=== PATIENT | female | born 1985 | race Caucasian/White ===

== ENCOUNTER 2023-05-10 03:11 | Emergency (ER) | payer OTHER, SELFPAY ==
[2023-05-10] VITALS (7 sets, daily range): BP systolic 94–129; BP diastolic 56–64; PULSE 56–80; RESP 15–21; TEMP 36.6; O2SAT 95–100; BMI 35.2
--- NOTE | 2023-05-10 03:23 | ED.GENADULT ---
HPI - General Adult General Chief complaint: Chest Pain Stated complaint: chest pain dizzy left arm pain 1 hour Time Seen by Provider: 05/10/23 03:18 History of Present Illness HPI narrative: 37-year-old woman with a BMI of 35, hypertension, hyperlipidemia, diabetes, polycystic ovarian disease he currently vapes presents with acute onset chest tightness starting at 2:00 a.m. this morning then radiating into her left arm and up into the left jaw. She states that she has a chronic cough that she is always assumed was secondary to her vaping. She reports no fevers, chills, palpitations, exertional dyspnea, orthopnea. She does not report any new or different activities or change to medications Related Data Allergies Allergy/AdvReac Type Severity Reaction Status Date / Time latex Allergy Unknown Verified 05/10/23 04:03 nickel Allergy Unknown Verified 05/10/23 04:03 Review of Systems Review of Systems Narrative: Pertinent positive and negative findings as per HPI Patient History Medical History (Updated 05/10/23 @ 04:54 by Yue Brunner MD) Diabetes type 2, controlled Polycystic ovarian syndrome Hyperlipidemia Hypertension Exam Narrative Exam Narrative: General: Healthy appearing, in no acute distress. Able to give a complete and coherent history. Well-nourished well-developed HEENT: Moist mucous membranes, normal sclera with reactive pupils, Neck: No JVD, supple. Reproducible arm and jaw pain with compression and neck rotation Respiratory: Lungs are clear to auscultation, no wheezing no rales no rhonchi. Full and symmetrical air movement Chest: Significant tenderness along all costochondral margins reproducing her chest pain Cardiac: Regular rate and rhythm no murmurs no bruits Abdomen: Soft, nontender, good bowel tones, no flank pain Skin: Warm and dry, no rashes Neurologic: Grossly neurologically intact with no obvious asymmetries or abnormalities Extremities: No trauma, well perfused Psych: Cooperative, appropriate insight and affect Medical Decision Making [facility] Narrative Medical decision making narrative: CC: Acute chest pain Complicating co-morbidities: Hypertension, hyperlipidemia, type 2 diabetes, PCOS, vaping, self-described sedentary lifestyle Data collected from: patient Medical records reviewed: No records available for review Differential considered: Acute coronary syndrome, radicular neck pain, pneumothorax, costochondritis Exam documented above, pertinent findings include: Exam is notable for significant costochondritis that completely reproduces her pain. Some of the arm and neck pain is reproducible with manipulation of her cervical spine. Cardiac and pulmonary exams are unremarkable Lab Test results independently reviewed as above. Pertinent findings: CBC shows mild leukocytosis at 14 remainder of CBC is unremarkable Chemistries are reassuring Troponin is undetectable Lipase is within normal limits Independently reviewed EKG: EKG shows sinus rhythm at a rate of 64. STT wave nonspecific changes without acute ischemia Imaging studies independently reviewed: Chest x-ray shows no significant cardiopulmonary abnormalities Treatments: IV Toradol Discussion: 37-year-old woman presents with acute onset of chest pain waking her from sleep with multiple risk factors for cardiac disease but no family history for such. Workup is unremarkable including troponin and EKG. Chest x-ray is reassuring. She has absolutely reproducible chest pain with minimal palpation along sternal borders consistent costochondritis. After IV Toradol the pain is markedly improved but not completely relieved. At this point I do not think that this represents acute coronary syndrome radicular neck pain no evidence of pleuritic pain pneumothorax or cardiomyopathy. I suspect that this is related to costochondritis and perhaps a small amount of anxiety to compound her overall symptoms. All of these findings reviewed with patient. She is relieved of the findings understands need for ibuprofen and rest. Questions are answered she is safe for discharge Discharge Plan Departure Patient Disposition: Home Clinical Impression: Costalchondritis Instructions: DI for Costochondritis Activity Restrictions/Additional Instructions: Thank you for coming in today Your workup was quite reassuring. Your initial troponin EKG were reassuring. Fact that your chest pain was reproducible with palpation along the breastbone borders is a very strong argument for costochondritis and a very strong argument against heart attack. You were given a dose of Toradol, an anti-inflammatory nonsteroidal. For costochondritis using 400 mg of ibuprofen (2 [id number] pills) and 1 Tylenol every 6 hours can be very helpful in controlling pain. If you find that you are getting worse or develop any new symptoms, please feel free to return to the emergency department for further evaluation. Stand Alone Forms: Patient Portal/API
--- NOTE | 2023-05-10 03:27 | DI.RAD.S_ITS ---
PROCEDURE: XR CHEST 1V INDICATIONS: chest pain TECHNIQUE: One view of the chest was acquired. COMPARISON: None. FINDINGS: Surgical changes and devices: None. Lungs and pleura: An incomplete inspiratory result is noted, causing a crowded appearance to the lung markings. Minimal infrahilar opacity can be seen the right lung base medially. No pneumothorax or significant pleural effusions are seen. Mediastinum: Mediastinal contours appear normal. Heart size is normal. Bones and chest wall: No suspicious bony lesions. Overlying soft tissues appear unremarkable. IMPRESSION: Minimal opacity seen involving the right lung base medially. In this patient with low lung volumes, this is most likely related to artifact or atelectasis. However, differential diagnosis includes mild infiltrate. If clinically appropriate, a short-term followup chest series (with PA and lateral views) performed in deep inspiration is suggested for further evaluation. Note: No significant discrepancy from the preliminary report. Dictated by: Ravindra Kuo M.D. on 05/10/2023 at 8:26 Approved by: Ravindra Kuo M.D. on 05/10/2023 at 8:27
[2023-05-10 03:43] LABS: Add Manual Diff / Slide Review NO; Basophils Absolute Auto 100 /uL (0-100); Basophils Percent Auto 0.7 % (0-2); Eosinophils Absolute Auto 100 /uL (0-450); Hematocrit 39.7 % (36-46); Hemoglobin 13.5 g/dL (12.0-16.0); INR 0.8 (0.9-1.3); Lymphocytes Absolute Auto 3700 /uL (1100-4500); Lymphocytes Percent Auto 26.5 % (25-40); Mean Corpuscular HGB Conc 33.9 % (30-36); Mean Corpuscular Hemoglobin 29.6 PG (26-34); Mean Corpuscular Volume 87.2 fL (80-100); Monocytes Absolute Auto 700 /uL (0-900); Monocytes Percent Auto 5.1 % (3-14); Neutrophils Absolute Auto 9400 /uL (1500-7000); Neutrophils Percent Auto 66.7 % (50-75); Platelet Count 319 X10^3/uL (150-400); Prothrombin Time 9.4 SECONDS (9.4-12.5); Red Blood Cell Count 4.55 X10^6/uL (4.0-5.2); Red Cell Distribution Width 12.8 % (11.6-14.8)
[2023-05-10 03:45] LABS: PTT Partial Thromboplastin Tim 28 SECONDS (25.1-36.5)
[2023-05-10 03:48] LABS: Alanine Aminotransferase 18 IU/L (<35); Albumin 4.3 g/dL (3.5-5.0); Albumin Globulin Ratio 1.3 (1.0-2.8); Alkaline Phosphatase 65 U/L (38-126); Aspartate Aminotransferase 19 IU/L (14-36); BUN Creatinine Ratio 12.1 (6-22); Bilirubin Total 0.6 mg/dL (0.2-1.3); Blood Urea Nitrogen 8 mg/dL (7-17); Calcium 9.3 mg/dL (8.4-10.2); Carbon Dioxide 24 mmol/L (22-32); Chloride 101 mmol/L (98-107); Creatine Kinase 65 U/L (30-135); Estimated Glomerular Filt Rate > 60 mL/min (>60); Globulin 3.3 g/dL (1.7-4.1); Glucose 93 mg/dL (70-100); HEMOLYSIS < 15 (0-50); Lipase 249 U/L (23-300); Potassium 3.6 mmol/L (3.4-5.1); Sodium 137 mmol/L (137-145); Total Protein 7.6 g/dL (6.3-8.2)
[2023-05-10] MEDS: KETOROLAC 30 MG/ML VIAL 15 MG IV (03:52)
[2023-05-10 03:54] LABS: D Dimer 911 ng/ml (<500)
[2023-05-10 03:59] LABS: Troponin I < 0.012 ng/mL (0.01-0.034)
== END 2023-05-10 05:00 | disposition home or self-care (01) ==
PROVIDERS: Emergency Provider Emergency Medicine
DX: M94.0 Chondrocostal junction syndrome [Tietze] (principal)
CPT/HCPCS: 36415; 71045; 80053; 82550; 83690; 83735; 84484; 85025; 85379; 85610; 85730; 93005; 93010; 96374; 99284; J1885

== ENCOUNTER 2023-11-15 04:28 | Emergency (ER) | payer OTHER, SELFPAY ==
[2023-11-15] VITALS (7 sets, daily range): BP systolic 98–131; BP diastolic 57–78; PULSE 76–86; RESP 14–20; TEMP 36.8; O2SAT 95–98; BMI 30.9
[2023-11-15 04:52] LABS: Add Manual Diff / Slide Review NO; Basophils Absolute Auto 100 /uL (0-100); Basophils Percent Auto 0.6 % (0-2); Eosinophils Absolute Auto 200 /uL (0-450); Eosinophils Percent Auto 1.3 % (2-4); Hematocrit 42.7 % (36-46); Hemoglobin 14.2 g/dL (12.0-16.0); Lymphocytes Absolute Auto 3000 /uL (1100-4500); Lymphocytes Percent Auto 19.6 % (25-40); Mean Corpuscular HGB Conc 33.3 % (30-36); Mean Corpuscular Hemoglobin 29.4 PG (26-34); Mean Corpuscular Volume 88.4 fL (80-100); Monocytes Absolute Auto 900 /uL (0-900); Monocytes Percent Auto 5.8 % (3-14); Neutrophils Absolute Auto 11100 /uL (1500-7000); Neutrophils Percent Auto 72.7 % (50-75); Platelet Count 326 X10^3/uL (150-400); Red Blood Cell Count 4.83 X10^6/uL (4.0-5.2); Red Cell Distribution Width 13.4 % (11.6-14.8); White Blood Cell Count 15.2 X10^3/uL (4.5-11.0)
--- NOTE | 2023-11-15 04:53 | DI.US.S_ITS ---
PROCEDURE: US ABDOMEN LIMITED INDICATIONS: epigastric pain TECHNIQUE: Real-time scanning was performed of the abdominal and retroperitoneal organs, with image documentation. COMPARISON: None. FINDINGS: Liver: Liver is normal in size and homogeneous in echotexture. Gallbladder: No gallstones identified. Normal gallbladder wall thickness. No pericholecystic fluid. Negative sonographic Trimble sign. Biliary ducts: Intrahepatic bile ducts are non-dilated. Extrahepatic bile duct caliber measures 3 mm. Normal is 6-7 mm or less in diameter, or 10 mm or less post-cholecystectomy. Pancreas: Visualized portions of the pancreas are sonographically normal. IMPRESSION: No cholelithiasis or sonographic evidence of acute cholecystitis. Findings are concordant with preliminary interpretation provided by [facility]. Approved by: Yasmin Jones M.D.,Ph.D. on 11/15/2023 at 9:51
--- NOTE | 2023-11-15 04:57 | ED_ITS ---
HPI - Abdominal Pain General Chief Complaint: Abdominal Pain Stated Complaint: ABDOMINAL PAIN Time Seen by Provider: 11/15/23 04:45 Source: patient Mode of arrival: Ambulatory Limitations: no limitations History of Present Illness HPI narrative: 38-year-old diabetes type 2, PCOS who presents with complaint epigastric pain radiates towards her back. Fairly sudden onset earlier this morning which has been persistent waxing and waning in terms of intensity. Patient states has not resolved. States movement seems to make it a little bit worse, being still seems to make it little bit better. No fevers. She has had nausea she states she has not vomited. She states she normally alternates between diarrhea and constipation. She denies any dysuria urgency or frequency. She states she has had pain in the same location but slightly different characterization in the past when she would pancreatitis. She states she was hospitalized for several days but does not know why she would pancreatitis. Patient states she is on Jardiance and Ozempic as well as spironolactone for PCOS. Patient denies any major surgeries. States she quit vaping tobacco in the last month. States occasional alcohol but none recently. Has used edibles in the past but none for about 2 or 3 months. Denies any other recreational drugs. Related Data Previous Rx's Medication Instructions Recorded omeprazole 40 mg capsule,delayed 40 mg PO DAILY #60 caps 11/15/23 release Allergies Allergy/AdvReac Type Severity Reaction Status Date / Time latex Allergy Unknown Verified 05/10/23 04:03 nickel Allergy Unknown Verified 05/10/23 04:03 Review of Systems Review of Systems ROS Unobtainable: All systems reviewed & are unremarkable except as noted in HPI and below Patient History Medical History Diabetes type 2, controlled Polycystic ovarian syndrome Hyperlipidemia Hypertension Social History Smoking Status: Current every day smoker Smoking Status: Current every day smoker tobacco type: vaping alcohol intake frequency: holidays/special occasions only Substance Use Type: marijuana Exam Narrative Exam Narrative: GENERAL: Alert and oriented x three, female in [id number] distress. HEENT: Head normocephalic, atraumatic, EOMI, pupils reactive, face symmetric, moist mucous membranes NECK: Supple, full range of motion CARDIOVASCULAR: Regular rate and rhythm without murmurs, rubs or gallops. RESPIRATORY: Breath sounds equal bilaterally, no wheezes rales or rhonchi. ABDOMEN: Soft, positive for epigastric and right upper quadrant tenderness. Normoactive bowel sounds all 4 quadrants. No guarding or rebound, rigidity, no mass, no pulsatile mass or bruit. : No CVA tenderness EXTREMITIES: Normal range of motion, no clubbing or edema. Neurovascularly intact NEUROLOGICAL: Cranial nerves II through XII grossly intact. Moving all extremities SKIN: Warm, dry, no petechiae, no rashes or lesions. Initial Vital Signs Initial Vital Signs: Vital Signs Temperature 98.2 F 11/15/23 04:39 Pulse Rate 85 11/15/23 04:39 Respiratory Rate 14 11/15/23 04:39 Blood Pressure 131/78 11/15/23 04:39 Pulse Oximetry 98 11/15/23 04:39 Oxygen Delivery Method Room Air 11/15/23 04:39 Course Orders Ordered: ED Orders 11/15/23 04:40 Complete Blood Count AUTO DIFF Stat Comprehensive Metabolic Panel Stat Lipase Stat 11/15/23 04:53 US abdomen limited Stat Ondansetron HCl (Ondansetron 4 Mg/2 Ml Inj) 4 mg IV NOW PRN PRN Reason: Nausea And Vomiting Last Admin: 11/15/23 05:03 Dose: 4 mg Documented By: Discontinued Medications Al Hydrox/Mg Hydrox/Simethicone 20 ml/ Lidocaine HCl 15 ml 0 ml PO NOW ONE Stop: 11/15/23 06:17 Last Admin: 11/15/23 06:24 Dose: 35 ml Documented By: KATHLEEN Sodium Chloride (Normal Saline 0.9%) 1,000 mls @ 1,000 mls/hr IV BOLUS ONE Stop: 11/15/23 05:55 Last Infusion: 11/15/23 06:16 Dose: Infused Documented By: Admin: 11/15/23 05:04 Dose: 1,000 mls/hr Documented By: Ketorolac Tromethamine (Ketorolac 30 Mg/Ml Vial) 15 mg IV NOW ONE Stop: 11/15/23 04:57 Last Admin: 11/15/23 05:03 Dose: 15 mg Documented By: Ondansetron HCl (Ondansetron 4 Mg Odt) 4 mg PO NOW PRN PRN Reason: Nausea And Vomiting Pantoprazole Sodium (Pantoprazole 40 Mg Vial) 40 mg IV NOW ONE Stop: 11/15/23 04:57 Last Admin: 11/15/23 05:03 Dose: 40 mg Documented By: AB Vital Signs Vital signs: Vital Signs - 8 hr 11/15/23 04:39 11/15/23 04:44 11/15/23 05:00 Temperature 98.2 F Pulse Rate 85 83 78 Respiratory Rate 14 Blood Pressure 131/78 Pulse Oximetry 98 95 96 Oxygen Delivery Method Room Air 11/15/23 05:00 11/15/23 05:30 11/15/23 05:30 Temperature Pulse Rate 86 Respiratory Rate Blood Pressure 105/61 114/57 L Pulse Oximetry 97 Oxygen Delivery Method 11/15/23 06:00 11/15/23 06:30 Temperature Pulse Rate 76 77 Respiratory Rate Blood Pressure Pulse Oximetry 95 95 Oxygen Delivery Method MDM - Abdominal Pain Lab Data 11/15/23 04:40 11/15/23 04:40 Labs: Lab Results 11/15/23 Range/Units 04:40 WBC 15.2 H (4.5-11.0) X10^3/uL RBC 4.83 (4.0-5.2) X10^6/uL Hgb 14.2 (12.0-16.0) g/dL Hct 42.7 (36-46) % MCV 88.4 (80-100) fL MCH 29.4 (26-34) PG MCHC 33.3 (30-36) % RDW 13.4 (11.6-14.8) % Plt Count 326 (150-400) X10^3/uL Neut % (Auto) 72.7 (50-75) % Lymph % (Auto) 19.6 L (25-40) % [place] % (Auto) 5.8 (3-14) % Eos % (Auto) 1.3 L (2-4) % Baso % (Auto) 0.6 (0-2) % Neut # (Auto) 04125 H (0528-7040) /uL Lymph # (Auto) 3000 (0542-3786) /uL [place] # (Auto) 900 (0-900) /uL Eos # (Auto) 200 (0-450) /uL Baso # (Auto) 100 (0-100) /uL Sodium 137 (137-145) mmol/L Potassium 4.3 (3.4-5.1) mmol/L Chloride 108 H (98-107) mmol/L Carbon Dioxide 24 (22-32) mmol/L BUN 16 (7-17) mg/dL Creatinine 0.81 (0.52-1.04) mg/dL Estimated GFR > 60 (>60) mL/min BUN/Creatinine Ratio 19.8 (6-22) Glucose 90 (70-100) mg/dL Calcium 9.4 (8.4-10.2) mg/dL Total Bilirubin 0.4 (0.2-1.3) mg/dL AST 16 (14-36) IU/L ALT 13 (<35) IU/L Alkaline Phosphatase 62 (38-126) U/L Total Protein 8.0 (6.3-8.2) g/dL Albumin 4.4 (3.5-5.0) g/dL Globulin 3.6 (1.7-4.1) g/dL Albumin/Globulin Ratio 1.2 (1.0-2.8) Lipase 175 (23-300) U/L Point of care testing: Point of Care Testing Test Results Negative Urine Dip Bedside Urine Glucose 1000 mg/dl Bedside Urine Bilirubin - Negative Bedside Urine Ketone - Negative Urine Specific [place] 1.015 Bedside Urine Occult Blood - Negative Bedside Urine pH 6 Bedside Urine Protein - Negative Bedside Urine Urobilinogen - Negative Bedside Urine Nitrite - Negative Bedside Urine Leukocytes - Negative Esterase Imaging Data US - abdomen: Radiologist's Impression: Gallbladder is normal sonographic appearance without gallbladder wall thickening, cholelithiasis, pericholecystic fluid or sonographic Trimble's sign. Common bile duct is normal diameter measures 3 mm, pancreas appears normal where seen tail is obscured by bowel gas, no free fluid or adenopathy seen. MDM Narrative Medical decision making narrative: 38-year-old female with history of diabetes type 2, PCOS and prior episode of pancreatitis. Patient states epigastric pain fairly sudden onset reproducible with palpation and also in the right upper quadrant. Initial labs show white count of 15 normal hemoglobin and platelets, electrolytes, LFTs and lipase are negative except for a chloride of 108. Right upper quadrant Abdominal ultrasound is negative. Urine, shows glucose, no infection, negative. Patient received fluids, Toradol, Protonix and Zofran. On recheck patient has improved but still somewhat uncomfortable. Patient then had GI cocktail and states very helpful. Will start on omeprazole. Discharge Plan Departure Patient Disposition: Home Clinical Impression: Abdominal pain, epigastric Instructions: DI for Epigastric Pain Activity Restrictions/Additional Instructions: Follow up with your physician for recheck. If your symptoms are persistent you may need to follow up for EGD, contacts included below to set up follow up with General surgery. Can take omeprazole 40 mg daily. Prescription sent to [facility]. Please return for fevers, rapidly worsening abdominal back or flank pain, persistent vomiting, lightheadedness or passing out, black or bloody stools or other new or concerning changes. Prescriptions: New omeprazole 40 mg capsule,delayed release(DR/EC) 40 mg PO DAILY Qty: 60 0RF Referrals: Dulce Brown MD [Physician] - Stand Alone Forms: Patient Portal/API
[2023-11-15 04:58] LABS: Alanine Aminotransferase 13 IU/L (<35); Albumin 4.4 g/dL (3.5-5.0); Albumin Globulin Ratio 1.2 (1.0-2.8); Alkaline Phosphatase 62 U/L (38-126); Aspartate Aminotransferase 16 IU/L (14-36); BUN Creatinine Ratio 19.8 (6-22); Bilirubin Total 0.4 mg/dL (0.2-1.3); Blood Urea Nitrogen 16 mg/dL (7-17); Calcium 9.4 mg/dL (8.4-10.2); Carbon Dioxide 24 mmol/L (22-32); Chloride 108 mmol/L (98-107); Estimated Glomerular Filt Rate > 60 mL/min (>60); Globulin 3.6 g/dL (1.7-4.1); Glucose 90 mg/dL (70-100); HEMOLYSIS < 15 (0-50); Lipase 175 U/L (23-300); Potassium 4.3 mmol/L (3.4-5.1); Sodium 137 mmol/L (137-145)
[2023-11-15] MEDS: ONDANSETRON 4 MG/2 ML INJ IV (05:03)
[2023-11-15] MEDS: PANTOPRAZOLE 40 MG VIAL IV (05:03)
[2023-11-15] MEDS: KETOROLAC 30 MG/ML VIAL 15 MG IV (05:03)
[2023-11-15] MEDS: SODIUM CHLORIDE 0.9% 1,000 ML 1000 ML IV (05:04)
[2023-11-15] MEDS: MAG HYDROX/ALUMINUM/SIMETH SUS 20 ML, LIDOCAINE VISCOUS 2% 15 ML PO (06:24)
== END 2023-11-15 07:40 | disposition home or self-care (01) ==
PROVIDERS: Emergency Provider Emergency Medicine
DX: R10.13 Epigastric pain (principal)
CPT/HCPCS: 36415; 76705; 80053; 81003; 81025; 83690; 85025; 96361; 96374; 96375; 99284; C9113; J1885; J2405

== ENCOUNTER 2024-01-01 12:35 | Emergency (ER) | payer OTHER, SELFPAY ==
[2024-01-01 12:44] VITALS: BP 136/89; PULSE 68; RESP 16; TEMP 36.6; O2SAT 99
--- NOTE | 2024-01-01 12:50 | EKG_ITS ---
[address] [address] [address] [address] Test Date: 2024-01-01 Pat Name: Waleska Quiñones Department: Room: Gender: Female Loading Dock Hand: TAISHA : 1985 Requested By: Order Number: [id number] Reading MD: Ibrahima Rodarte MD Measurements Intervals [place]mo Rate: 69 P: 43 CA: 138 QRS: 14 QRSD: 82 T: 38 QT: 416 QTc: 445 Interpretive Statements Normal sinus rhythm Electronically Signed On 01-01-2024 17:22:54 PDT by Ibrahima Rodarte MD
[2024-01-01 13:06] VITALS: PULSE 69; RESP 12; O2SAT 95
--- NOTE | 2024-01-01 13:07 | ED.GENADULT ---
HPI - General Adult General Chief complaint: Dizziness Stated complaint: WIC; Trouble Maintaining Consciousness Time Seen by Provider: 01/01/24 12:39 Source: patient Mode of arrival: Wheelchair History of Present Illness HPI narrative: Patient is a 38-year-old female who is here for evaluation of approximately 2 hours of what she describes as dizziness, nausea without vomiting, not feeling well, lightheadedness. She stated that the symptoms occurred when she was walking back into her office earlier today. She states that the symptoms had a fairly sudden onset. They do seem to come in waves. No chest pain or abdominal pain. Related Data Home Medications Medication Instructions Recorded Confirmed drospirenone 3 mg-ethinyl 1 tab PO DAILY 01/01/24 01/01/24 estradiol 0.03 mg tablet tirzepatide 2.5 mg/0.5 mL 2.5 mg SUBCUT QWEEK 01/01/24 01/01/24 subcutaneous pen injector Previous Rx's Medication Instructions Recorded omeprazole 40 mg capsule,delayed 40 mg PO DAILY #60 caps 11/15/23 release Allergies Allergy/AdvReac Type Severity Reaction Status Date / Time latex Allergy Unknown Verified 01/01/24 12:57 nickel Allergy Unknown Verified 01/01/24 12:57 Review of Systems Review of Systems ROS Unobtainable: All systems reviewed & are unremarkable except as noted in HPI and below Patient History Medical History Diabetes type 2, controlled Polycystic ovarian syndrome Hyperlipidemia Hypertension Social History Smoking Status: Current every day smoker Smoking Status: Current every day smoker tobacco type: vaping alcohol intake frequency: holidays/special occasions only Substance Use Type: marijuana Exam Initial Vital Signs Initial Vital Signs: Vital Signs Temperature 97.9 F 01/01/24 12:44 Pulse Rate 68 01/01/24 12:44 Respiratory Rate 16 01/01/24 12:44 Blood Pressure 136/89 01/01/24 12:44 Pulse Oximetry 99 01/01/24 12:44 Oxygen Delivery Method Room Air 01/01/24 12:44 Const General: cooperative, comfortable and No ill appearing HENMT Head: normal to inspection and normocephalic Resp Effort & Inspection: normal respiratory effort Auscultation: clear to auscultation bilaterally Cardio Rate: regular rate Rhythm: regular rhythm GI Inspection: normal to inspection and non-distended Skin General: no rashes or lesions noted Neuro General: patient alert, patient awake, patient oriented x3 and moves all extremities Extrem General: capillary refill normal Course Orders Ordered: ED Orders 01/01/24 12:46 EKG-12 Lead Stat 01/01/24 13:01 Complete Blood Count AUTO DIFF Stat Comprehensive Metabolic Panel Stat Lipase Stat Test Serum,Qual Stat 01/01/24 13:50 COVID19 -Nasal RAPID Stat Vital Signs Vital signs: Vital Signs - 8 hr 01/01/24 12:44 Temperature 97.9 F Pulse Rate 68 Respiratory Rate 16 Blood Pressure 136/89 Pulse Oximetry 99 Oxygen Delivery Method Room Air Medical Decision Making Lab Data Lab results reviewed: Yes I reviewed the patient's lab results. 01/01/24 13:01 01/01/24 13:01 Labs: Lab Results 01/01/24 01/01/24 Range/Units 13:01 13:50 WBC 10.8 (4.5-11.0) X10^3/uL RBC 4.90 (4.0-5.2) X10^6/uL Hgb 14.7 (12.0-16.0) g/dL Hct 42.9 (36-46) % MCV 87.6 (80-100) fL MCH 30.0 (26-34) PG MCHC 34.2 (30-36) % RDW 12.8 (11.6-14.8) % Plt Count 190 (150-400) X10^3/uL Neut % (Auto) 72.0 (50-75) % Lymph % (Auto) 22.3 L (25-40) % [place] % (Auto) 3.1 (3-14) % Eos % (Auto) 1.9 L (2-4) % Baso % (Auto) 0.7 (0-2) % Neut # (Auto) 7700 H (3198-7040) /uL Lymph # (Auto) 2400 (5759-0641) /uL [place] # (Auto) 300 (0-900) /uL Eos # (Auto) 200 (0-450) /uL Baso # (Auto) 100 (0-100) /uL Sodium 135 L (137-145) mmol/L Potassium 4.5 (3.4-5.1) mmol/L Chloride 106 (98-107) mmol/L Carbon Dioxide 17 L (22-32) mmol/L BUN 16 (7-17) mg/dL Creatinine 0.85 (0.52-1.04) mg/dL Estimated GFR > 60 (>60) mL/min BUN/Creatinine Ratio 18.8 (6-22) Glucose 88 (70-100) mg/dL Calcium 9.2 (8.4-10.2) mg/dL Total Bilirubin 0.6 (0.2-1.3) mg/dL AST 21 (14-36) IU/L ALT 12 (<35) IU/L Alkaline Phosphatase 77 (38-126) U/L Total Protein 7.9 (6.3-8.2) g/dL Albumin 4.4 (3.5-5.0) g/dL Globulin 3.5 (1.7-4.1) g/dL Albumin/Globulin Ratio 1.3 (1.0-2.8) Lipase 120 (23-300) U/L Serum , Qual Negative (Negative) SARS-CoV-2 (PCR) Positive H (Negative) Point of Care Testing Glucose POC 87 Point of care testing: Point of Care Testing Glucose POC 87 ECG Data Attestation: I personally reviewed and interpreted this ECG as follows: Interpretation: Sinus rhythm Ventricular rate is 69 Normal axis Normal QRS Normal QTC No ST T wave changes MDM Narrative Medical decision making narrative: Labs are unremarkable except that she was positive for COVID-19 which certainly explains her symptoms today. There was no indication for antibiotics. Discuss this with the patient. Discussed return precautions and follow-up instructions. She expressed understanding and agreement. Discharge Plan Departure Patient Disposition: Home Clinical Impression: COVID-19 Instructions: COVID-19 Activity Restrictions/Additional Instructions: You can take Tylenol/ibuprofen for any fevers or discomfort. Be sure that you were increasing your fluid intake. Follow all current CDC guidelines with regard to quarantine. Return to the emergency department for new or worsening symptoms. Prescriptions: No Action drospirenone-ethinyl estradiol 3-0.03 mg tablet 1 tab PO DAILY tirzepatide 2.5 mg/0.5 mL Pen Injector 2.5 mg SUBCUT QWEEK omeprazole 40 mg capsule,delayed release(DR/EC) 40 mg PO DAILY Qty: 60 0RF Referrals: Miscellaneous,Doctor, MD [Primary Care Provider] - Stand Alone Forms: Patient Portal/API
[2024-01-01 13:27] LABS: Pregnancy Test Serum,Qual Negative (Negative)
[2024-01-01 13:29] LABS: Alanine Aminotransferase 12 IU/L (<35); Albumin 4.4 g/dL (3.5-5.0); Albumin Globulin Ratio 1.3 (1.0-2.8); Alkaline Phosphatase 77 U/L (38-126); Aspartate Aminotransferase 21 IU/L (14-36); BUN Creatinine Ratio 18.8 (6-22); Bilirubin Total 0.6 mg/dL (0.2-1.3); Blood Urea Nitrogen 16 mg/dL (7-17); Calcium 9.2 mg/dL (8.4-10.2); Carbon Dioxide 17 mmol/L (22-32); Chloride 106 mmol/L (98-107); Estimated Glomerular Filt Rate > 60 mL/min (>60); Globulin 3.5 g/dL (1.7-4.1); Glucose 88 mg/dL (70-100); HEMOLYSIS 33 (0-50); Lipase 120 U/L (23-300); Potassium 4.5 mmol/L (3.4-5.1); Sodium 135 mmol/L (137-145); Total Protein 7.9 g/dL (6.3-8.2)
[2024-01-01 13:30] VITALS: PULSE 70; RESP 18; O2SAT 98
[2024-01-01 13:36] LABS: Add Manual Diff / Slide Review NO; Basophils Absolute Auto 100 /uL (0-100); Basophils Percent Auto 0.7 % (0-2); Eosinophils Absolute Auto 200 /uL (0-450); Eosinophils Percent Auto 1.9 % (2-4); Hematocrit 42.9 % (36-46); Hemoglobin 14.7 g/dL (12.0-16.0); Lymphocytes Absolute Auto 2400 /uL (1100-4500); Lymphocytes Percent Auto 22.3 % (25-40); Mean Corpuscular HGB Conc 34.2 % (30-36); Mean Corpuscular Volume 87.6 fL (80-100); Monocytes Absolute Auto 300 /uL (0-900); Monocytes Percent Auto 3.1 % (3-14); Neutrophils Absolute Auto 7700 /uL (1500-7000); Platelet Count 190 X10^3/uL (150-400); Red Cell Distribution Width 12.8 % (11.6-14.8); White Blood Cell Count 10.8 X10^3/uL (4.5-11.0)
[2024-01-01 14:00] VITALS: PULSE 69; RESP 18; O2SAT 97
[2024-01-01 14:02] LABS: COVID19 -Nasal RAPID POSITIVE (Negative)
[2024-01-01 14:11] VITALS: BP 118/82; PULSE 67; RESP 17; O2SAT 97
== END 2024-01-01 14:20 | disposition home or self-care (01) ==
PROVIDERS: Emergency Provider Emergency Medicine
DX: U07.1 COVID-19 (principal); R11.0 Nausea; R07.9 Chest pain, unspecified
CPT/HCPCS: 80053; 82962; 83690; 84703; 85025; 87635; 93005; 93010; 99282; 99284